=== PATIENT | male | born 1970 | race Caucasian/White ===

== ENCOUNTER 2021-08-27 08:08 | Emergency (ER) | payer BC ==
--- NOTE | 2021-08-27 08:16 | EDM.PDOC ---
ED HPI GENERAL MEDICAL PROBLEM - General Chief Complaint: Lower Extremity Injury/Pain Stated Complaint: LFT FOOT GOUT Time Seen by Provider: 08/27/21 08:11 Source of Information: Reports: Patient History Limitations: Reports: No Limitations - History of Present Illness INITIAL COMMENTS - FREE TEXT/NARRATIVE: 51-year-old male past medical gout presents for pain and dorsum of left foot. Patient notes that he was experiencing gout-like symptoms in his toes for the last 2 weeks which seem to be improving over the last several days. After a long drive yesterday patient began to notice pain spreading up to the dorsum of his of his foot and his medial ankle. It hurts to bear weight. No history of injury. No shortness of breath or chest pain. Did have some tightness in his left calf but the pain is primarily in his foot. left foot Pain Score (Numeric/FACES): 4 - Related Data Allergies Allergy/AdvReac Type Severity Reaction Status Date / Time No Known Allergies Allergy Verified 08/27/21 08:15 Home Meds: Home Meds Indomethacin 50 mg PO TID PRN #20 capsule 08/27/21 [Rx] predniSONE 40 mg PO DAILY 5 Days #10 tab 08/27/21 [Rx] Past Medical History Respiratory History: Reports: Asthma - Past Surgical History Musculoskeletal Surgical History: Reports: Other (See Below) Social & Family History - Family History Family Medical History: No Pertinent Family History Review of Systems - Review of Systems Review Of Systems: Comprehensive ROS is negative, except as noted in HPI. ED EXAM, GENERAL - Physical Exam Exam: See Below Exam Limited By: No Limitations General Appearance: Alert, WD/WN, No Apparent Distress Ears: Hearing Grossly Normal Throat/Mouth: Normal Voice, No Airway Compromise Head: Atraumatic, Normocephalic Respiratory/Chest: No Respiratory Distress, No Accessory Muscle Use Cardiovascular: Normal Peripheral Pulses, Regular Rate, Rhythm Extremities: Normal Inspection, Other (mild swelling without significant warmth/erythema of dorsum of L foot and medial malleolus; no calf TTP, calves are symmetric, no erythema of calves) Neurological: Alert, Normal Cognition Psychiatric: Normal Affect, Normal Mood Skin Exam: Warm, Dry, Intact, Normal Color Course - Vital Signs Last Recorded V/S: Last Vital Signs Temp 95.8 F L 08/27/21 08:11 Pulse 79 01/05/22 08:11 Resp 16 08/27/21 08:11 BP 165/100 H 08/27/21 08:11 Pulse Ox 97 08/27/21 08:11 - Orders/Labs/Meds Meds: Medications Discontinued Medications Generic Name Dose Route Start Last Admin Trade Name Freq PRN Reason Stop Dose Admin Acetaminophen 1,000 mg 08/27/21 08:29 08/27/21 08:48 Acetaminophen 500 Mg Tab PO 08/27/21 08:30 1,000 mg ONETIME ONE Administration Prednisone 60 mg 08/27/21 08:29 08/27/21 08:48 Prednisone 20 Mg Tab PO 08/27/21 08:30 60 mg STAT STA Administration - Re-Assessments/Exams Free Text/Narrative Re-Assessment/Exam: 08/27/21 08:31 Will f/u preordered XR and will treat for gout. Departure - Departure Time of Disposition: 09:15 Disposition: Home, Self-Care 01 Condition: Good Clinical Impression: Gout Qualifiers: Gout site: foot Gout etiology: unspecified cause Chronicity: acute Laterality: left Qualified Code(s): M10.9 - Gout, unspecified - Discharge Information Prescriptions: Indomethacin 50 mg PO TID PRN #20 capsule PRN Reason: Pain predniSONE 40 mg PO DAILY 5 Days #10 tab Instructions: Gout, [id number] Referrals: Luigi Azul MD [Primary Care Provider] - Forms: ED Department Discharge Additional Instructions: Your medications were sent to [facility]. Please try this for the next several days. You can take Tylenol with this medicine as they are safe to take together. If you have worsening pain or swelling extending into your calf and please come back to the emergency department or follow-up with your primary care physician to consider ultrasonography to rule out blood clot of the leg. The following information is given to patients seen in the emergency department who are being discharged to home. This information is to outline your options for follow-up care. We provide all patients seen in our emergency department with a follow-up referral. The need for follow-up, as well as the timing and circumstances, are variable depending upon the specifics of your emergency department visit. If you don't have a primary care physician on staff, we will provide you with a referral. We always advise you to contact your personal physician following an emergency department visit to inform them of the circumstance of the visit and for follow-up with them and/or the need for any referrals to a consulting specialist. The emergency department will also refer you to a specialist when appropriate. This referral assures that you have the opportunity for follow-up care with a specialist. All of these measure are taken in an effort to provide you with optimal care, which includes your follow-up. Under all circumstances we always encourage you to contact your private physician who remains a resource for coordinating your care. When calling for follow-up care, please make the office aware that this follow-up is from your recent emergency room visit. If for any reason you are refused follow-up, please contact the [facility] Emergency Department at and asked to speak to the emergency department charge nurse. Please follow up with your primary care physician. If you do not have a primary care physician, see below: [facility] [address] [place] [address] [id number] [facility] [address] [place] [id number] [facility] [address] [place] [id number] Sepsis Event Note (ED) - Evaluation Sepsis Screening Result: No Definite Risk - Focused Exam Vital Signs: Vital Signs Temp Pulse Resp BP Pulse Ox 08/27/21 08:11 95.8 F L 79 16 165/100 H 97
[2021-08-27] MEDS ORDERED: Acetaminophen 500 MG Tab PO ONE (08:29)
[2021-08-27] MEDS ORDERED: predniSONE 20 MG Tab PO STA (08:29)
--- NOTE | 2021-08-27 08:39 | CR ---
Indication: Pain and palpable lump regarding the dorsum of the foot. History of gout Technique: Three images of the left foot were acquired Comparison: None Findings: Small dorsal calcaneal spur. The osseous structures of the left foot are otherwise unremarkable. Soft tissues appear normal. No rows of change. No visible tophus by plain film. Impression: Small dorsal calcaneal spur. Otherwise unremarkable plain film of the left foot Dictated by Antelmo Sanchez MD @ 08/27/2021 8:38:44 AM (Electronically Signed)
[2021-08-27 09:32] VITALS: BP 136/79; PULSE 59
== END 2021-08-27 09:25 | disposition home or self-care (01) ==
LOC: MW.ED 08:08
DX: M10.9 Gout, unspecified (principal); J45.909 Unspecified asthma, uncomplicated; Z79.899 Other long term (current) drug therapy
CPT/HCPCS: 73630; 99283; A9270

== ENCOUNTER 2021-10-08 19:06 | Emergency (ER) | payer SELFPAY ==
[2021-10-08] MEDS ORDERED: Aspirin 81 MG Tab.Chew PO ONE (19:13)
[2021-10-08] MEDS ORDERED: Morphine 4 MG/ML VIAL IVPUSH ONE (19:20)
[2021-10-08 19:53] LABS: BLOOD UREA NITROGEN,BUN 16 mg/dL (7.0-18.0); CARBON DIOXIDE,CO2 28.8 mmol/L (21.0-32.0); CHLORIDE,CL 105 mmol/L (98-107); GLUCOSE RANDOM 132 mg/dL (74-106); POTASSIUM,K 3.5 mmol/L (3.5-5.1); SODIUM,NA 144 mmol/L (136-148)
[2021-10-08 22:52] VITALS: BP 160/99; PULSE 60
== END 2021-10-08 22:50 | disposition home or self-care (01) ==
LOC: MW.ED 19:06
DX: R07.89 Other chest pain (principal); I10 Essential (primary) hypertension; Z20.822 Contact with and (suspected) exposure to COVID-19
CPT/HCPCS: 36415; 71045; 80053; 83735; 84484; 85025; 85379; 87635; 93005; 96374; 99285; A9270; J2270; 93010; 99284; U0002